=== PATIENT | male | born 1960 | race Caucasian/White ===

== ENCOUNTER 2021-10-18 09:22 | Observation (INO) ==
[2021-10-18] MEDS ORDERED: Acetaminophen IV 1,000 MG/100 ML BAG IVPB ONE (09:29)
[2021-10-18] MEDS ORDERED: Ringers Solution, Lactated 1,000 ML IVC ONE (09:31)
[2021-10-18] MEDS ORDERED: Famotidine 20 MG/2 ML VIAL IVP ONE (09:31)
[2021-10-18] MEDS ORDERED: levoFLOXacin 500 MG/100 ML 500 MG/100 ML BAG IVPB ONE (09:49)
[2021-10-18] MEDS ORDERED: Lidocaine -MPF 2% 2 ML VIAL ONE ×2 (09:50→13:08)
[2021-10-18] MEDS ORDERED: *HR* FentaNYL (PF) 100 MCG/2 ML VIAL ONE ×2 (09:50→13:21)
[2021-10-18] MEDS ORDERED: *HR* Propofol 200 MG/20 ML VIAL IVP ONE ×2 (09:50→11:41)
[2021-10-18] MEDS ORDERED: Ketamine HCL *QUVA* 50mg (1mL) SYRINGE ONE (09:50)
[2021-10-18] MEDS ORDERED: *HR* Midazolam HCl 2 MG/2 ML VIAL ONE (09:50)
[2021-10-18] MEDS ORDERED: Insulin Human Regular 6 UNIT in 0.9 % Sodium Chloride 10 ML IV ONE (10:33)
[2021-10-18] MEDS ORDERED: Albuterol 2.5 MG/3 ML NEBULIZER IH PRN (11:09)
[2021-10-18] MEDS ORDERED: Ondansetron 4 MG/2 ML VIAL IVP PRN ×2 (11:09→15:15)
[2021-10-18] MEDS ORDERED: Nitroglycerin 0.4 MG TAB.SUBL SL PRN (11:09)
[2021-10-18] MEDS ORDERED: Naloxone 0.4 MG/ML INJ IVP PRN ×2 (11:09→15:15)
[2021-10-18] MEDS ORDERED: *HR* Succinylcholine 200 MG/10 ML VIAL IVP ONE (11:41)
[2021-10-18] MEDS ORDERED: *HR* Rocuronium Bromide 50 MG/5 ML VIAL ONE (12:44)
[2021-10-18] MEDS ORDERED: Ondansetron 4 MG/2 ML VIAL ONE (12:49)
[2021-10-18] MEDS ORDERED: Lidocaine Jelly 11 ml Syringe ONE (13:12)
[2021-10-18] MEDS: *HR* HYDROmorphone PF 0.5 MG/0.5 ML SYRINGE IVP PRN ×2 (13:47→13:59)
[2021-10-18] MEDS ORDERED: Acetaminophen 325 MG TABLET PO PRN (15:15)
[2021-10-18] MEDS ORDERED: Dextrose 4 GM Chewable Tablets PO PRN ×2 (15:15)
[2021-10-18] MEDS ORDERED: *HR* Dextrose 50 % in Water (Syg) 50 ML SYRINGE IVP PRN (15:15)
[2021-10-18] MEDS ORDERED: D5% in Water 1,000 ML IVC PRN (15:15)
[2021-10-18] MEDS: *HR* Glimepiride 4 MG TABLET PO SCH (16:39)
[2021-10-18] MEDS: *HR* Metformin 500 MG TABLET PO SCH (16:39)
[2021-10-18] MEDS: *HR* OxyCODONE Immed Rel 5 MG TABLET PO PRN (16:39)
[2021-10-18] MEDS: 0.9 % Sodium Chloride 1,000 ML IVC SCH (16:40)
[2021-10-18] MEDS: Insulin LISPRO 300 UNITS/3 ML VIAL SUBQ SCH ×2 (16:40→22:32)
[2021-10-18] MEDS: Gabapentin 300 MG CAPSULE PO SCH (20:35)
[2021-10-18] MEDS: *HR* HYDROcodone/Acet 5/325 mg TABLET PO PRN (22:31)
[2021-10-18] MEDS: Latanoprost 2.5 ML BOTTLE BOTH EYES SCH (22:35)
[2021-10-19] MEDS: 0.9 % Sodium Chloride 1,000 ML IVC SCH (01:16)
[2021-10-19 01:34] LABS: Basophils % 0.1 %; Hematocrit 32.9 % (37.5-50.1); Hemoglobin 10.1 g/dL (12.9-16.9); Immature Granulocytes % 0.6 % (0-4); Lymphocytes # 0.6 K/mcL (0.6-4.6); Lymphocytes % 5.4 %; Mean Corpuscular HGB Conc 30.7 g/dL (31.6-35.5); Mean Corpuscular Hemoglobin 28.4 pg (28.0-33.3); Mean Corpuscular Volume 92.4 fL (83.0-100.0); Mean Platelet Volume 8.8 fL (9.4-12.4); Monocytes # 0.4 K/mcL (0.0-1.3); Monocytes % 3.8 %; Neutrophils # 9.8 K/mcL (1.6-8.9); Platelet Count 210 K/mcL (140-400); Red Blood Count 3.56 M/mcL (4.19-5.50); Red Cell Distribution Width 13.5 % (11.5-14.5); Segmented Neutrophils % 90.1 %; White Blood Count 10.9 K/mcL (4.3-11.1)
[2021-10-19 01:50] LABS: BUN/Creatinine Ratio 22 (6-26); Blood Urea Nitrogen 20 mg/dL (8-23); Calcium 7.7 mg/dL (8.6-10.3); Carbon Dioxide 26 mEq/L (23-29); Chloride 102 mEq/L (98-107); Glucose 315 mg/dL (70-105); Osmolality,Calculated 291 (280-300); Sodium 133 mEq/L (136-145); eGFR For African Americans > 60 (> 60); eGFR For Non-African Americans > 60 (> 60)
[2021-10-19] MEDS: *HR* OxyCODONE Immed Rel 5 MG TABLET PO PRN (07:22)
[2021-10-19] MEDS: *HR* Metformin 500 MG TABLET PO SCH ×2 (08:07→17:10)
[2021-10-19] MEDS: Gabapentin 300 MG CAPSULE PO SCH ×2 (08:07→22:02)
[2021-10-19] MEDS: lisinopriL 20 MG TABLET PO SCH (08:07)
[2021-10-19] MEDS: hydroCHLOROthiazide 25 MG TABLET PO SCH (08:08)
[2021-10-19] MEDS: *HR* Glimepiride 4 MG TABLET PO SCH ×2 (08:08→17:11)
[2021-10-19] MEDS: Insulin LISPRO 300 UNITS/3 ML VIAL SUBQ SCH ×4 (08:09→22:02)
[2021-10-19] MEDS: *HR* HYDROcodone/Acet 5/325 mg TABLET PO PRN (13:52)
[2021-10-19] MEDS: Latanoprost 2.5 ML BOTTLE BOTH EYES SCH (22:04)
[2021-10-20 06:59] VITALS: BP 142/77; PULSE 77; TEMP 98.6; O2SAT 98
[2021-10-20] MEDS: *HR* Glimepiride 4 MG TABLET PO SCH (08:08)
[2021-10-20] MEDS: *HR* Metformin 500 MG TABLET PO SCH (08:08)
[2021-10-20] MEDS: hydroCHLOROthiazide 25 MG TABLET PO SCH (08:09)
[2021-10-20] MEDS: Gabapentin 300 MG CAPSULE PO SCH (08:09)
[2021-10-20] MEDS: lisinopriL 20 MG TABLET PO SCH (08:09)
[2021-10-20] MEDS: Insulin LISPRO 300 UNITS/3 ML VIAL SUBQ SCH (08:10)
== END 2021-10-20 12:18 | disposition home or self-care (01) ==
LOC: 3ANU 09:22 → SAMDAY 09:22 → 3ANU 15:00 → EDSDCBED 10-19 19:06 → SAMDAY 10-20 12:18 → UNDODEPSDC 10-21 10:32
PROVIDERS: ADMIT Urology; ATTEND Urology
PROC: UROTURP (2021-10-18 11:10)